=== PATIENT | male | born 1955 | race Caucasian/White ===

== ENCOUNTER 2020-05-04 10:57 | Outpatient (REF) | payer MEDICARE, SELFPAY ==
[2020-05-04 14:35] LABS: Urine Cytology See Pathology rpt
== END 2020-05-04 10:58 | disposition home or self-care (01) ==
LOC: HO.LNP 10:57
PROVIDERS: PCP Internal Medicine; Visit Provider Urology
DX: C67.9 Malignant neoplasm of bladder, unspecified (principal); N39.0 Urinary tract infection, site not specified; N32.0 Bladder-neck obstruction
CPT/HCPCS: 52000; 81002; 88112; 99212

== ENCOUNTER → 2020-08-03 13:00 | Outpatient (BNVA) | payer MEDICARE, SELFPAY | PROVIDERS: PCP Internal Medicine; Visit Provider Urology | DX: C67.9 Malignant neoplasm of bladder, unspecified (principal); N52.9 Male erectile dysfunction, unspecified | CPT/HCPCS: 52000; 81002; 99212 ==

== ENCOUNTER 2021-03-06 11:02 | Outpatient (REF) | payer MEDICARE, SELFPAY ==
[2021-03-06 16:56] LABS: Urine Cytology See Pathology rpt
== END 2021-03-06 11:03 | disposition home or self-care (01) ==
LOC: HO.LAB 11:02
PROVIDERS: PCP Internal Medicine; Visit Provider Urology
DX: C67.9 Malignant neoplasm of bladder, unspecified (principal); N32.0 Bladder-neck obstruction; N52.9 Male erectile dysfunction, unspecified
CPT/HCPCS: 52000; 88112; 99212

== ENCOUNTER 2021-09-04 11:00 | Outpatient (REF) | payer MEDICARE, SELFPAY ==
[2021-09-04 16:32] LABS: Urine Cytology See Pathology rpt
== END 2021-09-04 11:01 | disposition home or self-care (01) ==
LOC: HO.LAB 11:00
PROVIDERS: PCP Internal Medicine; Visit Provider Urology
DX: N30.90 Cystitis, unspecified without hematuria (principal); C67.9 Malignant neoplasm of bladder, unspecified; N52.9 Male erectile dysfunction, unspecified
CPT/HCPCS: 52000; 88112; 99212

== ENCOUNTER 2022-03-07 11:12 | Outpatient (REF) | payer MEDICARE, SELFPAY ==
[2022-03-07 17:47] LABS: Urine Cytology See Pathology rpt
== END 2022-03-07 11:13 | disposition home or self-care (01) ==
LOC: HO.LAB 11:12
PROVIDERS: Visit Provider Urology
DX: C67.9 Malignant neoplasm of bladder, unspecified (principal); N52.9 Male erectile dysfunction, unspecified; N32.0 Bladder-neck obstruction; N30.90 Cystitis, unspecified without hematuria; Z79.899 Other long term (current) drug therapy
CPT/HCPCS: 88112; 99212

== ENCOUNTER 2022-04-11 11:05 | Outpatient (REF) | payer MEDICARE, SELFPAY ==
[2022-04-11 16:32] LABS: Urine Cytology See Pathology rpt
== END 2022-04-11 11:06 | disposition home or self-care (01) ==
LOC: HO.LAB 11:05
PROVIDERS: Visit Provider Urology
DX: C67.9 Malignant neoplasm of bladder, unspecified (principal); N52.9 Male erectile dysfunction, unspecified; Z79.899 Other long term (current) drug therapy
CPT/HCPCS: 52000; 88112; 99212

== ENCOUNTER 2022-11-29 09:44 | Outpatient (AMB) | payer MEDICARE, SELFPAY ==
--- NOTE | 2022-11-29 09:51 | MHC.OFFVIS ---
Intake Intake Visit Reasons: Cysto Intake Note: Patient is present for Cystoscopy Urology Med: Sildenafil, Tadalafil, Tamsulosin Antibiotic Allergy:none Blood Thinner: None Pharmacy: [facility] Disposable Cystoscope used during Procedure LOT#: [id number] EXP: 08/30/2024 Allergies THIMERISOL Allergy (Unknown, Uncoded 11/29/22 09:52) REDNESS Medication List - Last Reconciled 11/29/22 by Jim Alan MD bethanechol chloride 50 mg PO BID 90 days diazepam 5 mg PO BID PRN 1 day lisinopril 10 mg PO DAILY sildenafil 100 mg PO DAILY PRN 30 days sulfamethoxazole-trimethoprim 400-80 mg (Bactrim) 1 tab PO BEDTIME 90 days tadalafil (Cialis) 10 mg PO DAILY 30 days tamsulosin (Flomax) 0.4 mg PO BEDTIME 90 days trazodone 50 mg PO DAILY HPI HPI Comments History of Present Illness Details Bal is a pleasant male. He is a patient of Dr Thomason. He is seen for the following urologic conditions - bladder cancer - pyuria - erectile dysfunction Continued inflamed bladder On low-dose Bactrim Encourage double voiding Start bethanechol for bladder emptying Bladder Cancer: T1 low-grade large 08/15 Has mildly inflamed bladder which has been present since initial diagnosis Bladder cancer was initially diagnosed During evaluation for urgency and frequency Dr Alan 08/15. Bladder intervention(s) performed - 08/15 , TURBT, T1 invades subepthium, Low Grade, Large - 10/15 6 week induction gemcitabine Recurrence Risk per EORTC Intermediate Risk - by size. Bladder cancer risk factors Organic Solvent exposure No smoking Yes Forty-five year pack per day history hair dye exposure No use of pioglitazone No chronic cystitis Yes prior chemotherapy with cyclophosphamide No family history of bladder cancer No pelvic radiation No Associated symptoms urge Yes frequency Yes nocturia > 2 Yes Prior Cystoscopy 12/15 Posterior wall erythema, - 05/18 posterior wall erythema stable, 03/18 NAD, 09/16 NAD Prior Cytology 08/15 , atypical cells, 05/18 negative Previous intravesical therapy 10/15 Gemcitabine induction. Planned treatment surveillance protocol Lower urinary tract symptoms Response to Flomax Detected pyuria so on chronic single strength Bactrim Erectile dysfunction 10 mg Cialis [facility] Medical History (Updated 11/29/22 @ 11:09 by Jim Alan MD) Acute cystitis without hematuria Bladder outlet obstruction Incomplete emptying of bladder Malignant neoplasm of posterior wall of urinary bladder Weak urinary stream Surgical History History of appendectomy Office Procedures Cystoscopy Consent Discussed risk and benefit or proposed procedure with the patient. Information consent for procedure given to the patient. Discussed technical aspects, risks, benefits and alternatives in full. Addressed all of the patient's questions and concerns regarding the procedure. The patient demonstrated knowledge and understanding. They wish to proceed with this procedure. Preparation The patient was prepped in the usual manner. A life skills instructor was present and in the room. Genitalia was prepped with betadine solution in a sterile manner. Lidocaine Jelly 2% was placed into the urethra and 16Fr flexible Olympus cystoscope was inserted into the meatus after adequate lubrication. Procedure Meatus circumcised Urethra anterior posterior urethra normal Prostatic Urethra normal Bladder examination with retroflexion of cystoscope Bladder Orifices normal shape and position Bladder Capacity large Trabeculations grade to Cellule Formation - Diverticulum Formation - Mucosal Erythema generalized mucosal erythema from persistent low-grade infection Bladder Tumor - [id number] Procedure code (CPT) selection complete Office Meds lidocaine HCl Performing Provider: Jim Alan MD Administered by: Emilie Zurita RN on 11/29/22 10:38 Dose Route Admin Location Lot Number Expiration Date [facility] Mud Tank Operator 10 mL intra-urethral nitrofurantoin monohyd/m-cryst 100 mg Performing Provider: Jim Aaln MD Administered by: Emilie Zurita RN on 11/29/22 10:38 Dose Route Admin Location Lot Number Expiration Date [place] Mud Tank Operator 100 mg PO Results AMB Urinalysis, Automated UA Leukoctes 500 [place]/uL Last Edit by HERNESTO Zarate on 11/29/22 10:10 UA Nitrite Positive Last Edit by HERNESTO Zarate on 11/29/22 10:10 UA Urobilinogen 0.2 mg/dL Last Edit by HERNESTO Zarate on 11/29/22 10:10 UA Protein 0 mg/dL Last Edit by HERNESTO Zarate on 11/29/22 10:10 UA pH 6.0 Last Edit by HERNESTO Zarate on 11/29/22 10:10 UA Blood 25 [place]/uL Last Edit by Steffanie Duran, RMA on 11/29/22 10:10 UA Specific [place] 1.005 Last Edit by Steffanie Duran, RMA on 11/29/22 10:10 UA Ketone Negative Last Edit by Steffanie Duran, RMA on 11/29/22 10:10 UA Bilirubin 0 mg/dL Last Edit by Steffanievernell Duran, RMA on 11/29/22 10:10 UA Glucose 0 mg/dL Last Edit by Steffanie Duran, RMA on 11/29/22 10:10 Results Reviewed Results Reviewed: Laboratory Last Values Urine pH (Auto) 6.0 11/29/22 09:53 Specific [place] (Auto) 1.005 11/29/22 09:53 Urine Protein (Auto) 0 mg/dL 11/29/22 09:53 Glucose (UA)(Auto) 0 mg/dL 11/29/22 09:53 Urine Ketones (Auto) Negative 11/29/22 09:53 Urine Blood (Auto) 25 [place]/uL 11/29/22 09:53 Urine Nitrite (Auto) Positive 11/29/22 09:53 Urine Bilirubin (Auto) 0 mg/dL 11/29/22 09:53 Urine Urobilinogen (Auto) 0.2 mg/dL 11/29/22 09:53 Leukocyte Esterase (Auto) 500 [place]/uL 11/29/22 09:53 Assessment & Plan Assessment & Plan (1) Bladder cancer: Comment: 08/15 T1 low-grade large Code(s): C67.9 - Malignant neoplasm of bladder, unspecified (2) Incomplete emptying of bladder: Code(s): R33.9 - Retention of urine, unspecified Plan Three month follow-up At [facility] Orders: Orders Urine Cytology Today C67.9 - Malignant neoplasm of bladder, unspecified Urine Culture Today N39.0 - Urinary tract infection, site not specified AMB Cystoscopy Today C67.9 - Malignant neoplasm of bladder, unspecified AMB Urinalysis Automated Today Z13.9 - Encounter for screening, unspecified Medications: New bethanechol chloride 50 mg PO BID 90 days 180 tabs 1RF N32.0 - Bladder-neck obstruction Patient Instructions: Imaging studies, laboratory and physical exam results were discussed and reviewed in detail. No major barriers to patient understanding were identified. An opportunity to ask questions regarding the treatment plan was provided. All questions were answered. The patient expressed understanding and agreement with the above treatment plan. The patient is aware they should contact our office by phone for worsening of their current condition or the appearance of new urologic symptoms. Compliance is encouraged with any medications and followup testing that is ordered. It is a privilege to participate in the urologic care of your patient. If you have any questions or concerns regarding treatment for the above conditions, or other urologic issues, please do not hesitate to contact me. The office telephone contact is [phone]. This note is constructed using voice recognition software. While every effort has been made to ensure accuracy electrical line splicer errors may have been included. Yours sincerely, Dr Jim Alan MD, JENNY [facility] - Urology Providers of Expert, Compassionate Care for the Genitourinary System Coding Level of Care Code Est Pt Level 4 (26977) Diagnoses Bladder cancer C67.9 Incomplete emptying of bladder R33.9 CPT Codes Cystoscopy - CPT: 91611-[id number] ([id number])
== END 2022-11-29 11:06 | disposition home or self-care (01) ==
PROVIDERS: Visit Provider Urology
DX: C67.8 Malignant neoplasm of overlapping sites of bladder (principal); R33.9 Retention of urine, unspecified
CPT/HCPCS: 52000

== ENCOUNTER 2022-11-29 09:44 | Outpatient (REF) | payer MEDICARE, SELFPAY ==
[2022-11-29 20:24] LABS: Urine Cytology See Pathology rpt
== END 2022-11-29 09:45 | disposition home or self-care (01) ==
LOC: HO.LAB 09:44
PROVIDERS: Visit Provider Urology
DX: C67.9 Malignant neoplasm of bladder, unspecified (principal); N39.0 Urinary tract infection, site not specified
CPT/HCPCS: 52000; 87086; 87088; 87186; 88112

== ENCOUNTER 2023-03-07 10:37 | Outpatient (REF) | payer MEDICARE, SELFPAY ==
[2023-03-07 16:37] LABS: Urine Cytology See Pathology rpt
== END 2023-03-07 10:38 | disposition home or self-care (01) ==
LOC: HO.LAB 10:37
PROVIDERS: PCP Internal Medicine; Visit Provider Urology
DX: C67.9 Malignant neoplasm of bladder, unspecified (principal)
CPT/HCPCS: 52000; 81003; 88112; 99212

== ENCOUNTER 2023-03-07 10:37 | Outpatient (AMB) | payer MEDICARE, SELFPAY ==
--- NOTE | 2023-03-07 10:51 | MHC.OFFVIS ---
Intake Intake Visit Reasons: 3m/cysto Intake Note: Patient is Present for Cystoscopy Urology Med: Bethanechol, Sildenafil,Tadalafil , Tamsulosin Antibiotic Allergy: None Blood Thinner: none URO- G Disposable Cystoscope lot: [id number] exp: 10/09/22 Allergies THIMERISOL Allergy (Unknown, Uncoded 03/07/23 10:54) REDNESS Medication List - Last Reconciled 03/07/23 by Jim Alan MD bethanechol chloride 50 mg PO BID 90 days diazepam 5 mg PO BID PRN 1 day levofloxacin 500 mg PO DAILY 7 days lisinopril 10 mg PO DAILY sildenafil 100 mg PO DAILY PRN 30 days sulfamethoxazole-trimethoprim 400-80 mg (Bactrim) 1 tab PO BEDTIME 90 days tadalafil (Cialis) 10 mg PO DAILY 30 days tamsulosin (Flomax) 0.4 mg PO BEDTIME 90 days trazodone 50 mg PO DAILY HPI HPI Comments History of Present Illness Details Bal is a pleasant male. He is a patient of Dr Thomason. He is seen for the following urologic conditions - bladder cancer - pyuria - erectile dysfunction 6 month Surveillance cystoscopy Inflamed Recommend bladder biopsy with fulguration in 6 months Remains on low-dose Bactrim and bethanechol to manage chronic cystitis with incomplete bladder emptying Bladder Cancer: T1 low-grade large 08/15 Has mildly inflamed bladder which has been present since initial diagnosis Bladder cancer was initially diagnosed During evaluation for urgency and frequency Dr Alan 08/15. Bladder intervention(s) performed - 08/15 , TURBT, T1 invades subepthium, Low Grade, Large - 10/15 6 week induction gemcitabine Recurrence Risk per EORTC Intermediate Risk - by size. Bladder cancer risk factors Organic Solvent exposure No smoking Yes Forty-five year pack per day history hair dye exposure No use of pioglitazone No chronic cystitis Yes prior chemotherapy with cyclophosphamide No family history of bladder cancer No pelvic radiation No Associated symptoms urge Yes frequency Yes nocturia > 2 Yes Prior Cystoscopy 12/15 Posterior wall erythema, - 05/18 posterior wall erythema stable, 03/18 NAD, 09/16 NAD Prior Cytology 08/15 , atypical cells, 05/18 negative Previous intravesical therapy 10/15 Gemcitabine induction. Planned treatment surveillance protocol Lower urinary tract symptoms Response to Flomax Detected pyuria so on chronic single strength Bactrim Erectile dysfunction 10 mg Cialis [facility] Medical History Malignant neoplasm of posterior wall of urinary bladder Acute cystitis without hematuria Incomplete emptying of bladder Weak urinary stream Bladder outlet obstruction Surgical History History of appendectomy Review of Systems Const Denies chills and Denies fever(s) Card Reports no additional complaints and Denies syncope Resp Denies cough GI Denies abdominal pain and Denies heartburn Reports as per HPI and Denies change in libido Neuro Denies syncope Psych Denies change in libido Endo Denies change in libido Physical Exam Const General: cooperative, healthy appearing, comfortable and no acute distress Orientation/consciousness: patient oriented x3 HEENT Face and sinus: Yes normal facial exam Mouth: moist mucous membranes Neck Neck: Yes normal visual inspection, Yes full ROM and Yes trachea midline Chest Chest palpation & inspection: normal inspection of the chest Resp Effort & Inspection: normal respiratory effort, able to speak in complete sentences and no respiratory distress GI Inspection: Yes normal to inspection Back/Spine/Pelvis Cervical Spine: normal cervical lordosis Thoracic/Lumbar Spine: thoracic and lumbar spine normal to inspection Skin General skin exam: no rashes or lesions noted Neuro General: patient oriented x3, gait normal, tone normal and moves all extremities Extrem General: Yes normal to inspection and Yes capillary refill normal Office Procedures Cystoscopy Consent Discussed risk and benefit or proposed procedure with the patient. Information consent for procedure given to the patient. Discussed technical aspects, risks, benefits and alternatives in full. Addressed all of the patient's questions and concerns regarding the procedure. The patient demonstrated knowledge and understanding. They wish to proceed with this procedure. Preparation The patient was prepped in the usual manner. A grain unloader machine was present and in the room. Genitalia was prepped with betadine solution in a sterile manner. Lidocaine Jelly 2% was placed into the urethra and 16Fr flexible Olympus cystoscope was inserted into the meatus after adequate lubrication. [id number] DISPOSABLE SCOPE URO-G FLEXIBLE SCOPE Procedure code (CPT) selection complete Office Meds lidocaine HCl 2 % mucosal jelly in applicator Performing Provider: Jim Alan MD [facility] Administered by: Emilie Friedman RN on 03/07/23 11:22 Dose Route Admin Location Dispensed Lot Number Expiration Date NDC Program Development Specialist 10 mL intra-urethral 10 mL nitrofurantoin monohydrate/macrocrystals 100 mg capsule Performing Provider: Jim Alan MD [facility]forming [facility] Administered by: Emilie Friedman RN on 03/07/23 11:22 Dose Route Admin Location Dispensed Lot Number Expiration Date NDC Program Development Specialist 100 mg PO 1 cap naproxen 500 mg tablet Performing Provider: Jim Alan MD [facility]forming [facility] Administered by: Emilie Friedman RN on 03/07/23 11:22 Dose Route Admin Location Dispensed Lot Number Expiration Date NDC Program Development Specialist 500 mg PO 1 tab Results AMB Urinalysis, Automated UA Leukoctes 500 [place]ilene/uL Last Edit by Steffanie Duran [facility] on 03/07/23 11:07 UA Nitrite Negative Last Edit by Steffanie Duran [facility] on 03/07/23 11:07 UA Urobilinogen 0.2 mg/dL Last Edit by Steffanie Duran [facility] on 03/07/23 11:07 UA Protein 0 mg/dL Last Edit by Steffanie Duran [facility] on 03/07/23 11:07 UA pH 6.0 Last Edit by Steffanie Duran [facility] on 03/07/23 11:07 UA Blood 0 Edison/uL Last Edit by Steffanie Duran [facility] on 03/07/23 11:07 UA Specific [place] 1.005 Last Edit by Steffanie Duran [facility] on 03/07/23 11:07 UA Ketone Negative Last Edit by Steffanie Duran [facility] on 03/07/23 11:07 UA Bilirubin 0 mg/dL Last Edit by Steffanie Duran [facility] on 03/07/23 11:07 UA Glucose 0 mg/dL Last Edit by Steffanie Duran [facility] on 03/07/23 11:07 Results Reviewed Results Reviewed: Laboratory Last Values Urine pH (Auto) 6.0 03/07/23 10:55 Specific [place] (Auto) 1.005 03/07/23 10:55 Urine Protein (Auto) 0 mg/dL 03/07/23 10:55 Glucose (UA)(Auto) 0 mg/dL 03/07/23 10:55 Urine Ketones (Auto) Negative 03/07/23 10:55 Urine Blood (Auto) 0 Edison/uL 03/07/23 10:55 Urine Nitrite (Auto) Negative 03/07/23 10:55 Urine Bilirubin (Auto) 0 mg/dL 03/07/23 10:55 Urine Urobilinogen (Auto) 0.2 mg/dL 03/07/23 10:55 Leukocyte Esterase (Auto) 500 [place]il[place]/uL 03/07/23 10:55 Assessment & Plan Assessment & Plan (1) Bladder cancer: Comment: 08/15 T1 low-grade large Code(s): C67.9 - Malignant neoplasm of bladder, unspecified Qualifiers: Bladder location: unspecified site Qualified Code(s): C67.9 - Malignant neoplasm of bladder, unspecified (2) Erectile dysfunction: Code(s): N52.9 - Male erectile dysfunction, unspecified (3) Incomplete emptying of bladder: Code(s): R33.9 - Retention of urine, unspecified Plan Six month follow-up cystoscopy Orders: Orders AMB Urinalysis Automated Today Z13.9 - Encounter for screening, unspecified AMB Cystoscopy Today C67.9 - Malignant neoplasm of bladder, unspecified Urine Cytology Today C67.9 - Malignant neoplasm of bladder, unspecified Medications: Refilled sulfamethoxazole-trimethoprim 400-80 mg (Bactrim) 1 tab PO BEDTIME 90 days 90 tabs 1RF N30.90 - Cystitis, unspecified without hematuria, N39.0 - Urinary tract infection, site not specified bethanechol chloride 50 mg PO BID 90 days 180 tabs 1RF N32.0 - Bladder-neck obstruction Patient Instructions: Imaging studies, laboratory and physical exam results were discussed and reviewed in detail. No major barriers to patient understanding were identified. An opportunity to ask questions regarding the treatment plan was provided. All questions were answered. The patient expressed understanding and agreement with the above treatment plan. The patient is aware they should contact our office by phone for worsening of their current condition or the appearance of new urologic symptoms. Compliance is encouraged with any medications and followup testing that is ordered. It is a privilege to participate in the urologic care of your patient. If you have any questions or concerns regarding treatment for the above conditions, or other urologic issues, please do not hesitate to contact me. The office telephone contact is [phone]. This note is constructed using voice recognition software. While every effort has been made to ensure accuracy president ergonomic consulting errors may have been included. Yours sincerely, Dr Jim Alan MD, JENNY [facility] - Urology Providers of Expert, Compassionate Care for the Genitourinary System Coding Level of Care Code Est Pt Level 3 (62731) Diagnoses Malignant neoplasm of urinary bladder, unspecified site C67.9 Bladder location: unspecified site Erectile dysfunction N52.9 Incomplete emptying of bladder R33.9 CPT Codes Cystoscopy - CPT: [id number] ([id number])
== END 2023-03-07 11:38 | disposition home or self-care (01) ==
PROVIDERS: PCP Internal Medicine; Visit Provider Urology
DX: R33.9 Retention of urine, unspecified (principal); N52.9 Male erectile dysfunction, unspecified; C67.9 Malignant neoplasm of bladder, unspecified; Z13.9 Encounter for screening, unspecified
CPT/HCPCS: 52000; 99214